=== PATIENT | male | born 2000 | race African-American/Black ===

== ENCOUNTER 2022-05-04 08:32 | Inpatient (IN) ==
[2022-05-04] MEDS ORDERED: NS 0.9% 1000 ml BAG 2,000 ML IV ONE (09:02)
[2022-05-04] MEDS ORDERED: Vancomycin 1,500 MG in NS 0.9% 250 ml 250 ML IVPB ONE (09:15)
[2022-05-04 11:07] LABS: Hematocrit 49 % (42-52); Mean Corpuscular HGB Conc 32 g/dL (31-36); Mean Corpuscular Hemoglobin 27 pg (27-31); Mean Corpuscular Volume 82 fL (80-94); Platelet Count 388 10^3/uL (150-450); Red Blood Count 6.04 10^6 /uL (4.18-5.48); Red Cell Distribution Width 13 % (10-15); White Blood Count 25.4 10^3/uL (3.5-10.8)
[2022-05-04] MEDS ORDERED: Cefepime 2 GM in Dextrose 2 GM/50 ML BAG IV ONE (11:21)
[2022-05-04 11:42] LABS: ABS Lymphocytes 2.9 10^3/ul (1.0-4.8); ABS Monocytes 3.5 10^3/ul (0-0.8); ABS Neutrophils 18.9 10^3/ul (1.5-7.7); Eosinophil % 0.1 %; Lymphocyte % 11.5 %; Nucleated Red Blood Cells % 0.1
[2022-05-04 11:49] LABS: Albumin 4.3 g/dL (3.2-5.2); CO2 Carbon Dioxide 24 mmol/L (22-32); Calcium 8.8 mg/dL (8.6-10.3); Chloride 98 mmol/L (101-111); Sodium 135 mmol/L (135-145)
[2022-05-04 11:56] LABS: ALT 230 U/L (7-52); Albumin/Globulin Ratio 1.3 (1-3); Alkaline Phosphatase 109 U/L (35-149); Blood Urea Nitrogen 26 mg/dL (6-24); Globulin 3.3 g/dL (2-4); Glucose 104 mg/dL (70-100); Total Protein 7.6 g/dL (6.4-8.9); eGFR CKD-EPI 41.4 (>60)
[2022-05-04 11:58] LABS: Anion Gap 13 mmol/L (2-11)
[2022-05-04] MEDS ORDERED: Iodixanol (CONTRAST) 320 MG/ML 100 ML SDV IV ONE (12:13)
[2022-05-04] MEDS ORDERED: Lactated Ringers 1000 ml BAG 1,000 ML IV ONE (12:16)
[2022-05-04 13:38] LABS: Creatine Kinase 104279 U/L (10-223)
[2022-05-04] MEDS: Acetaminophen IV 1 GM/100ML 1,000 MG/100 ML BAG IV PRN (20:17)
[2022-05-04] MEDS ORDERED: NS 0.9% 100 ml BAG 100 ML IV ONE (20:29)
[2022-05-04] MEDS ORDERED: Vancomycin per Pharmacy 1 EA NOTE FOLLOW UP SCH (21:00)
[2022-05-04 23:23] LABS: Hematocrit 43 % (42-52); Hemoglobin 13.6 g/dL (14.0-18.0); Mean Corpuscular HGB Conc 32 g/dL (31-36); Mean Corpuscular Hemoglobin 26 pg (27-31); Mean Corpuscular Volume 82 fL (80-94); Red Blood Count 5.29 10^6 /uL (4.18-5.48); Red Cell Distribution Width 14 % (10-15); White Blood Count 21.5 10^3/uL (3.5-10.8)
[2022-05-04 23:37] LABS: Albumin 3.6 g/dL (3.2-5.2); CO2 Carbon Dioxide 16 mmol/L (22-32); Chloride 100 mmol/L (101-111); Sodium 128 mmol/L (135-145)
[2022-05-04 23:43] LABS: ALT 232 U/L (7-52); Albumin/Globulin Ratio 1.2 (1-3); Alkaline Phosphatase 101 U/L (35-149); Blood Urea Nitrogen 36 mg/dL (6-24); Globulin 2.9 g/dL (2-4); Glucose 92 mg/dL (70-100); Total Protein 6.5 g/dL (6.4-8.9); eGFR CKD-EPI 23.2 (>60)
[2022-05-04 23:52] LABS: Anion Gap 12 mmol/L (2-11)
[2022-05-05] MEDS ORDERED: Vancomycin 750 MG in NS 0.9% 250 ML IVPB ONE
[2022-05-05 00:17] LABS: ABS Lymphocytes 2.2 10^3/ul (1.0-4.8); ABS Monocytes 2.2 10^3/ul (0-0.8); ABS Neutrophils 17.3 10^3/ul (1.5-7.7); Eosinophil % 0.1 %; Lymphocyte % 10.2 %; Nucleated Red Blood Cells % 0.2
[2022-05-05 00:18] LABS: Platelet Count Platelets clumped. 10^3/uL (150-450)
[2022-05-05 00:57] LABS: Creatine Kinase 81347 U/L (10-223)
[2022-05-05 01:59] LABS: Urine Appearance Turbid; Urine Bilirubin Negative (Negative); Urine Blood 3+ (Negative); Urine Color Amber; Urine Glucose 1+(50 mg/dL) (Negative); Urine Ketones Negative (Negative); Urine Nitrite Negative (Negative); Urine Protein 2+(100 mg/dL) (Negative); Urine Specific Gravity 1.023 (1.002-1.030); Urine Urobilinogen Negative (Negative)
[2022-05-05] MEDS: Cefepime 2 GM in Dextrose 2 GM/50 ML BAG IV SCH ×2 (02:05→11:03)
[2022-05-05 02:07] LABS: Urine Bacteria Absent (Absent); Urine Red Blood Cell 2+(6-10/hpf) (Absent); Urine Squamous Epithelial Cell Present (Absent); Urine White Blood Cell 1+(6-10/hpf) (Absent)
[2022-05-05 02:17] LABS: Urine Benzodiazepine Screen Presumptive Positive (None Detect); Urine Cannabinoids Screen Presumptive Positive (None Detect); Urine Opiates Screen Presumptive Positive (None Detect)
[2022-05-05 02:18] LABS: Potassium Redraw 4.2 mmol/L (3.5-5.0)
[2022-05-05 02:42] LABS: Albumin 3.1 g/dL (3.2-5.2); Albumin/Globulin Ratio 1.3 (1-3); Calcium 7.8 mg/dL (8.6-10.3); Globulin 2.4 g/dL (2-4); Phosphorus 5.7 mg/dL (2.5-5.0); Potassium 4.2 mmol/L (3.5-5.0); Total Bilirubin 0.5 mg/dL (0.2-1.0); Total Protein 5.5 g/dL (6.4-8.9)
[2022-05-05] MEDS: Lactated Ringers 1000 ml BAG 1,000 ML IV SCH ×2 (02:57→05:31)
[2022-05-05] MEDS ORDERED: Lactated Ringers 500 ml BAG 500 ML IV ONE (04:04)
[2022-05-05 05:20] LABS: Hematocrit 36 % (42-52); Hemoglobin 11.8 g/dL (14.0-18.0); Mean Corpuscular HGB Conc 33 g/dL (31-36); Mean Corpuscular Hemoglobin 26 pg (27-31); Mean Corpuscular Volume 80 fL (80-94); Mean Platelet Volume 6.9 fL (7.4-10.4); Platelet Count 231 10^3/uL (150-450); Red Blood Count 4.47 10^6 /uL (4.18-5.48); Red Cell Distribution Width 13 % (10-15); White Blood Count 19.4 10^3/uL (3.5-10.8)
[2022-05-05 05:33] LABS: Fibrinogen 471.1 mg/dL (110.8-404.3); INR 1.09 (0.89-1.11)
[2022-05-05 05:49] LABS: ABS Lymphocytes 1.8 10^3/ul (1.0-4.8); ABS Monocytes 2.3 10^3/ul (0-0.8); ABS Neutrophils 15.2 10^3/ul (1.5-7.7); Eosinophil % 0.1 %; Lymphocyte % 9.3 %
[2022-05-05 05:53] LABS: Albumin/Globulin Ratio 1.3 (1-3); C Reactive Protein 139.82 mg/L (<8.01); Calcium 7.7 mg/dL (8.6-10.3); Globulin 2.3 g/dL (2-4); Potassium 4.1 mmol/L (3.5-5.0); Total Bilirubin 0.5 mg/dL (0.2-1.0); Total Protein 5.3 g/dL (6.4-8.9); eGFR CKD-EPI 18.1 (>60)
[2022-05-05] MEDS ORDERED: Rocuronium 50 mg VIAL 10 mg/ml 5 ml VIAL (50 mg) ONE (06:10)
[2022-05-05] MEDS ORDERED: Midazolam 5 mg/5 ml VIAL 1 mg/ml 5 ml VIAL (5 mg) ONE (06:11)
[2022-05-05] MEDS ORDERED: fentaNYL 100 mcg/2 ml 50 MCG/ML VIAL ONE ×3 (06:11→08:42)
[2022-05-05] MEDS ORDERED: Ketamine HCL 50 mg/ml 10 ml VIAL (500 MG) ONE (06:11)
[2022-05-05] MEDS ORDERED: Lidocaine 2% PF 5 ML VIAL ONE (06:12)
[2022-05-05] MEDS ORDERED: fentaNYL 250 mcg/5 ml 50 MCG/ML 5 ml VIAL (250 MCG) ONE (07:21)
[2022-05-05] MEDS ORDERED: Ondansetron 4 mg VIAL 2 MG/ML 2 ml VIAL IV PRN (07:24)
[2022-05-05] MEDS ORDERED: HYDROmorphone 1 MG/1 ML SYRINGE IV PRN (07:24)
[2022-05-05] MEDS ORDERED: Naloxone 0.4 mg VIAL 0.4 mg/ml 1 ml VIAL IV PRN (07:24)
[2022-05-05] MEDS ORDERED: Morphine 10 MG/ML VIAL (1 ml) ONE (07:48)
[2022-05-05] MEDS: fentaNYL 100 mcg/2 ml 50 MCG/ML VIAL IV PRN ×2 (08:43→09:19)
[2022-05-05] MEDS ORDERED: Morphine 4 MG/ML VIAL (1 ml) ONE (08:59)
[2022-05-05] MEDS ORDERED: Vancomycin 1000 MG in NS 0.9% 250 ML IVPB SCH (09:00)
[2022-05-05] MEDS ORDERED: fentaNYL 100 mcg/2 ml 50 MCG/ML VIAL IV SLOW PU PRN (10:14)
[2022-05-05] MEDS ORDERED: NS 0.9% 500 ml BAG 500 ML IV ONE ×3 (10:25→11:30)
[2022-05-05] MEDS ORDERED: Lactated Ringers 1000 ml BAG 1,000 ML IV SCH (10:27)
[2022-05-05] MEDS ORDERED: Vancomycin Random Level NOTE FOLLOW UP ONE (10:30)
[2022-05-05] MEDS: NS 0.9% 1000 ml BAG 1,000 ML IV SCH ×3 (10:46→20:37)
[2022-05-05] MEDS: Acetaminophen IV 1 GM/100ML 1,000 MG/100 ML BAG IV PRN ×2 (12:12→19:35)
[2022-05-05] MEDS: Heparin 5000 UNITS/ML 1 mL VIAL SUBCUT SCH ×2 (13:54→23:32)
[2022-05-05] MEDS ORDERED: NS 0.9% 500 ml BAG 1,000 ML IV ONE (14:13)
[2022-05-05] MEDS: fentaNYL 100 mcg/2 ml 50 MCG/ML VIAL IV SLOW PU PRN ×4 (14:16→17:44)
[2022-05-05] MEDS ORDERED: Magnesium Hydroxide LIQ 30 ML UDC PO PRN (14:47)
[2022-05-05 15:07] LABS: Anion Gap 12 mmol/L (2-11); Blood Urea Nitrogen 44 mg/dL (6-24); CO2 Carbon Dioxide 17 mmol/L (22-32); Calcium 6.9 mg/dL (8.6-10.3); Chloride 102 mmol/L (101-111); Glucose 123 mg/dL (70-100); Potassium 4.4 mmol/L (3.5-5.0); Sodium 131 mmol/L (135-145); eGFR CKD-EPI 15.5 (>60)
[2022-05-05] MEDS: Senna TAB 8.6 mg TAB PO PRN (15:36)
[2022-05-05] MEDS ORDERED: Furosemide 20 mg/2 ml IV VIAL IV ONE (16:45)
[2022-05-05 17:45] LABS: Creatine Kinase > 18000 U/L (10-223)
[2022-05-05 20:00] LABS: Magnesium 1.7 mg/dL (1.9-2.7); Phosphorus 5.6 mg/dL (2.5-5.0)
[2022-05-05 20:58] LABS: Venous Bicarbonate HCO3 18.5 mmol/L (24-28)
[2022-05-05] MEDS ORDERED: Dexmedetomidine 1,000 MCG in NS 0.9% 250 ml 240 ML IV SCH (21:00)
[2022-05-06] MEDS: Cefepime 1 GM in Dextrose 1 GM/50 ML BAG IV SCH ×2 (00:34→13:13)
[2022-05-06] MEDS: fentaNYL 100 mcg/2 ml 50 MCG/ML VIAL IV SLOW PU PRN ×8 (00:41→22:49)
[2022-05-06] MEDS: NS 0.9% 1000 ml BAG 1,000 ML IV SCH ×2 (02:00→06:55)
[2022-05-06] MEDS: Acetaminophen IV 1 GM/100ML 1,000 MG/100 ML BAG IV PRN ×3 (02:36→15:48)
[2022-05-06 03:29] LABS: ABS Eosinophils 0.1 10^3/ul (0-0.6); ABS Lymphocytes 1.4 10^3/ul (1.0-4.8); ABS Monocytes 1.5 10^3/ul (0-0.8); ABS Neutrophils 9.8 10^3/ul (1.5-7.7); Eosinophil % 0.6 %; Hematocrit 30 % (42-52); Hemoglobin 9.6 g/dL (14.0-18.0); Lymphocyte % 11.1 %; Mean Corpuscular HGB Conc 32 g/dL (31-36); Mean Corpuscular Hemoglobin 25 pg (27-31); Mean Corpuscular Volume 80 fL (80-94); Mean Platelet Volume 6.8 fL (7.4-10.4); Platelet Count 183 10^3/uL (150-450); Red Blood Count 3.77 10^6 /uL (4.18-5.48); Red Cell Distribution Width 13 % (10-15); White Blood Count 12.9 10^3/uL (3.5-10.8)
[2022-05-06 03:56] LABS: Phosphorus 5.1 mg/dL (2.5-5.0); Vancomycin Random 17.1 mcg/mL
[2022-05-06] MEDS: Heparin 5000 UNITS/ML 1 mL VIAL SUBCUT SCH ×3 (05:58→21:16)
[2022-05-06] MEDS ORDERED: Vancomycin Random Level NOTE FOLLOW UP ONE (06:00)
[2022-05-06] MEDS ORDERED: Piperacillin/Tazobac ADVAN 3.375 GM in NS 0.9% 100 ml BAG 100 ML IV ONE (08:18)
[2022-05-06 08:24] LABS: Myoglobin 11677.6 ng/mL (17.4-105.7)
[2022-05-06] MEDS ORDERED: NS 0.9% 1000 ml BAG 1,000 ML IV SCH (08:27)
[2022-05-06] MEDS ORDERED: Zosyn per Pharmacy NOTE FOLLOW UP SCH (09:00)
[2022-05-06 11:47] LABS: HIV 4th Generation Nonreactive (Nonreactive)
[2022-05-06 11:52] LABS: Hepatitis C Antibody Negative (Negative)
[2022-05-06] MEDS ORDERED: HYDROmorphone 1 MG/1 ML SYRINGE IV ONE (12:17)
[2022-05-06] MEDS ORDERED: Midazolam 10 mg/10 ml VIAL 1 mg/ml 10 ml VIAL (10 mg) IV SLOW PU ONE (12:25)
[2022-05-06] MEDS ORDERED: fentaNYL 250 mcg/5 ml 50 MCG/ML 5 ml VIAL (250 MCG) ONE (12:29)
[2022-05-06] MEDS ORDERED: Midazolam 10 mg/10 ml VIAL 1 mg/ml 10 ml VIAL (10 mg) ONE (12:29)
[2022-05-06] MEDS ORDERED: Midazolam 2 mg/2 ml VIAL 1 mg/ml 2 ml VIAL (2 mg) IV SLOW PU ONE (13:19)
[2022-05-06] MEDS ORDERED: Heparin 1,000 UNIT/ML 10 ml (10,000 UNITS) CATHLAB/DIALYSIS DIALYSIS ONE (13:35)
[2022-05-06] MEDS: ZOSYN 3.375 GM Q12H per EXTENDED INFUSION IV SCH (13:59)
[2022-05-06] MEDS ORDERED: fentaNYL 100 mcg/2 ml 50 MCG/ML VIAL IV SLOW PU ONE ×2 (14:39→14:40)
[2022-05-06 16:50] LABS: Hepatitis B Surface Antigen Nonreactive (Nonreactive)
[2022-05-06 17:08] LABS: Hepatitis B Surface Ab Immune (Immune)
[2022-05-06] MEDS: Vancomycin 750 MG in NS 0.9% 250 ML IVPB ONE ×2 (17:31→18:12)
[2022-05-06] MEDS ORDERED: fentaNYL 100 mcg/2 ml 50 MCG/ML VIAL IV SLOW PU SCH (21:00)
[2022-05-07] MEDS: fentaNYL 100 mcg/2 ml 50 MCG/ML VIAL IV SLOW PU PRN ×8 (00:14→20:23)
[2022-05-07] MEDS: Cefepime 1 GM in Dextrose 1 GM/50 ML BAG IV SCH (00:21)
[2022-05-07] MEDS: ZOSYN 3.375 GM Q12H per EXTENDED INFUSION IV SCH ×2 (00:53→13:15)
[2022-05-07] MEDS: Heparin 5000 UNITS/ML 1 mL VIAL SUBCUT SCH ×3 (04:50→22:20)
[2022-05-07] MEDS: Acetaminophen IV 1 GM/100ML 1,000 MG/100 ML BAG IV PRN (04:50)
[2022-05-07 05:16] LABS: Hematocrit 30 % (42-52); Hemoglobin 9.5 g/dL (14.0-18.0); Mean Corpuscular HGB Conc 32 g/dL (31-36); Mean Corpuscular Hemoglobin 26 pg (27-31); Mean Corpuscular Volume 80 fL (80-94); Mean Platelet Volume 7.2 fL (7.4-10.4); Platelet Count 176 10^3/uL (150-450); Red Blood Count 3.73 10^6 /uL (4.18-5.48); Red Cell Distribution Width 13 % (10-15); White Blood Count 14.3 10^3/uL (3.5-10.8)
[2022-05-07 05:33] LABS: ABS Eosinophils 0.2 10^3/ul (0-0.6); ABS Lymphocytes 1.9 10^3/ul (1.0-4.8); ABS Monocytes 1.6 10^3/ul (0-0.8); ABS Neutrophils 10.6 10^3/ul (1.5-7.7); Eosinophil % 1.2 %; Lymphocyte % 13.1 %
[2022-05-07 06:01] LABS: Albumin 2.3 g/dL (3.2-5.2); Albumin/Globulin Ratio 1.2 (1-3); Calcium 7.2 mg/dL (8.6-10.3); Globulin 1.9 g/dL (2-4); Phosphorus 4.8 mg/dL (2.5-5.0); Potassium 3.6 mmol/L (3.5-5.0); Total Bilirubin 0.3 mg/dL (0.2-1.0); Total Protein 4.2 g/dL (6.4-8.9); eGFR CKD-EPI 12.1 (>60)
[2022-05-07] MEDS ORDERED: Heparin *DIALYSIS* ONLY 1,000 UNITS/ML VIAL DIALYSIS ONE (06:18)
[2022-05-07] MEDS: Heparin 1,000 UNIT/ML 10 ml (10,000 UNITS) CATHLAB/DIALYSIS DIALYSIS ONE ×4 (06:59→10:26)
[2022-05-07] MEDS ORDERED: Vancomycin Trough Check NOTE FOLLOW UP ONE (08:30)
[2022-05-07 08:42] LABS: Vancomycin Random 22.8 mcg/mL
[2022-05-07] MEDS ORDERED: fentaNYL 100 mcg/2 ml 50 MCG/ML VIAL IV SLOW PU PRN (09:09)
[2022-05-07] MEDS ORDERED: Vancomycin 750 MG in NS 0.9% 250 ML IVPB ONE (18:00)
[2022-05-07] MEDS ORDERED: Heparin 1,000 UNIT/ML 10 ml (10,000 UNITS) CATHLAB/DIALYSIS DIALYSIS ONE (19:00)
[2022-05-08] MEDS: ZOSYN 3.375 GM Q12H per EXTENDED INFUSION IV SCH ×2 (00:19→12:54)
[2022-05-08] MEDS: fentaNYL 100 mcg/2 ml 50 MCG/ML VIAL IV SLOW PU PRN ×4 (02:15→21:00)
[2022-05-08 04:22] LABS: Hematocrit 31 % (42-52); Hemoglobin 9.8 g/dL (14.0-18.0); Mean Corpuscular HGB Conc 32 g/dL (31-36); Mean Corpuscular Hemoglobin 26 pg (27-31); Mean Corpuscular Volume 80 fL (80-94); Mean Platelet Volume 7.3 fL (7.4-10.4); Platelet Count 178 10^3/uL (150-450); Red Blood Count 3.82 10^6 /uL (4.18-5.48); Red Cell Distribution Width 14 % (10-15); White Blood Count 13.3 10^3/uL (3.5-10.8)
[2022-05-08 04:25] LABS: ABS Basophils 0.1 10^3/ul (0-0.2); ABS Eosinophils 0.5 10^3/ul (0-0.6); ABS Lymphocytes 2.8 10^3/ul (1.0-4.8); ABS Monocytes 1.7 10^3/ul (0-0.8); ABS Neutrophils 8.2 10^3/ul (1.5-7.7); Eosinophil % 3.9 %; Lymphocyte % 21.3 %; Nucleated Red Blood Cells % 0.1
[2022-05-08 04:45] LABS: Albumin 2.3 g/dL (3.2-5.2); Albumin/Globulin Ratio 1.2 (1-3); Globulin 1.9 g/dL (2-4); Phosphorus 5.5 mg/dL (2.5-5.0); Potassium 3.4 mmol/L (3.5-5.0); Total Bilirubin 0.3 mg/dL (0.2-1.0); Total Protein 4.2 g/dL (6.4-8.9); Vancomycin Random 26.7 mcg/mL; eGFR CKD-EPI 12.4 (>60)
[2022-05-08 05:00] LABS: Calcium 7.6 mg/dL (8.6-10.3)
[2022-05-08] MEDS ORDERED: Vancomycin Random Level NOTE FOLLOW UP SCH (06:00)
[2022-05-08] MEDS: Heparin 5000 UNITS/ML 1 mL VIAL SUBCUT SCH ×2 (06:18→14:16)
[2022-05-08] MEDS: Heparin 1,000 UNIT/ML 10 ml (10,000 UNITS) CATHLAB/DIALYSIS DIALYSIS ONE ×4 (09:15→12:21)
[2022-05-09] MEDS: ZOSYN 3.375 GM Q12H per EXTENDED INFUSION IV SCH ×2 (01:14→14:35)
[2022-05-09] MEDS: fentaNYL 100 mcg/2 ml 50 MCG/ML VIAL IV SLOW PU PRN ×3 (03:22→19:46)
[2022-05-09] MEDS ORDERED: Bupivacaine 0.25% SDV 30 ML ONE (07:33)
[2022-05-09] MEDS ORDERED: Metoclopramide 5 MG/ML VIAL (10 mg) IV PRN (07:37)
[2022-05-09] MEDS ORDERED: HYDROcodone/ACETAMIN 5/325 mg TAB PO PRN (07:37)
[2022-05-09] MEDS ORDERED: Buffered Lidocaine 1% SYRIN 1 ml INTRADERM ONE (07:37)
[2022-05-09] MEDS ORDERED: Naloxone 0.4 mg VIAL 0.4 mg/ml 1 ml VIAL IV PRN (07:37)
[2022-05-09] MEDS ORDERED: Ondansetron 4 mg VIAL 2 MG/ML 2 ml VIAL IV PRN (07:37)
[2022-05-09] MEDS ORDERED: Midazolam 2 mg/2 ml VIAL 1 mg/ml 2 ml VIAL (2 mg) ONE (07:40)
[2022-05-09] MEDS ORDERED: fentaNYL 250 mcg/5 ml 50 MCG/ML 5 ml VIAL (250 MCG) ONE (07:40)
[2022-05-09] MEDS ORDERED: Propofol 10 MG/ML 20 ML BTL ONE (07:41)
[2022-05-09 07:58] LABS: Hematocrit 32 % (42-52); Hemoglobin 10.6 g/dL (14.0-18.0); Mean Corpuscular HGB Conc 33 g/dL (31-36); Mean Corpuscular Hemoglobin 26 pg (27-31); Mean Corpuscular Volume 79 fL (80-94); Mean Platelet Volume 7.3 fL (7.4-10.4); Platelet Count 162 10^3/uL (150-450); Red Blood Count 4.02 10^6 /uL (4.18-5.48); Red Cell Distribution Width 13 % (10-15); White Blood Count 17.1 10^3/uL (3.5-10.8)
[2022-05-09] MEDS ORDERED: NS 0.45% 1000 ml BAG 1,000 ML IV SCH (08:00)
[2022-05-09] MEDS ORDERED: ceFAZolin 2 GM in NS PREMIX 2 GM/100 ML BAG IVPB ONE (08:03)
[2022-05-09 08:15] LABS: Phosphorus 6.4 mg/dL (2.5-5.0); Potassium 3.5 mmol/L (3.5-5.0); Vancomycin Random 19.1 mcg/mL; eGFR CKD-EPI 11.5 (>60)
[2022-05-09] MEDS ORDERED: fentaNYL 100 mcg/2 ml 50 MCG/ML VIAL ONE (09:43)
[2022-05-09] MEDS: fentaNYL 100 mcg/2 ml 50 MCG/ML VIAL IV PRN ×4 (09:45→10:20)
[2022-05-09] MEDS ORDERED: fentaNYL 100 mcg/2 ml 50 MCG/ML VIAL IV SLOW PU PRN (10:27)
[2022-05-09] MEDS ORDERED: HYDROcodone/ACETAMIN 5/325 mg TAB ONE (10:44)
[2022-05-10] MEDS: fentaNYL 100 mcg/2 ml 50 MCG/ML VIAL IV SLOW PU PRN ×5 (00:11→21:12)
[2022-05-10] MEDS: ZOSYN 3.375 GM Q12H per EXTENDED INFUSION IV SCH ×2 (01:12→16:14)
[2022-05-10 04:43] LABS: Hematocrit 29 % (42-52); Hemoglobin 9.4 g/dL (14.0-18.0); Mean Corpuscular HGB Conc 32 g/dL (31-36); Mean Corpuscular Hemoglobin 26 pg (27-31); Mean Corpuscular Volume 79 fL (80-94); Mean Platelet Volume 7.7 fL (7.4-10.4); Platelet Count 153 10^3/uL (150-450); Red Blood Count 3.67 10^6 /uL (4.18-5.48); Red Cell Distribution Width 14 % (10-15); White Blood Count 14.9 10^3/uL (3.5-10.8)
[2022-05-10 04:58] LABS: ABS Basophils 0.1 10^3/ul (0-0.2); ABS Eosinophils 0.7 10^3/ul (0-0.6); ABS Lymphocytes 2.8 10^3/ul (1.0-4.8); ABS Neutrophils 9.3 10^3/ul (1.5-7.7); Lymphocyte % 18.9 %; Nucleated Red Blood Cells % 0.2
[2022-05-10 05:08] LABS: Calcium 7.7 mg/dL (8.6-10.3); Magnesium 2.1 mg/dL (1.9-2.7); Potassium 3.4 mmol/L (3.5-5.0); Vancomycin Random 16.6 mcg/mL; eGFR CKD-EPI 8.4 (>60)
[2022-05-10 07:23] LABS: Phosphorus 7.3 mg/dL (2.5-5.0)
[2022-05-10] MEDS ORDERED: Zosyn per Pharmacy NOTE FOLLOW UP PRN (11:31)
[2022-05-10] MEDS ORDERED: fentaNYL 100 mcg/2 ml 50 MCG/ML VIAL IV SLOW PU ONE (11:56)
[2022-05-10] MEDS: Heparin 1,000 UNIT/ML 10 ml (10,000 UNITS) CATHLAB/DIALYSIS DIALYSIS PRN ×4 (12:30→15:58)
[2022-05-10] MEDS: Senna TAB 8.6 mg TAB PO PRN (21:09)
[2022-05-11] MEDS: ZOSYN 3.375 GM Q12H per EXTENDED INFUSION IV SCH ×2 (00:59→13:14)
[2022-05-11] MEDS: fentaNYL 100 mcg/2 ml 50 MCG/ML VIAL IV SLOW PU PRN ×5 (01:00→20:44)
[2022-05-11 06:43] LABS: Hematocrit 31 % (42-52); Hemoglobin 10.4 g/dL (14.0-18.0); Mean Corpuscular HGB Conc 34 g/dL (31-36); Mean Corpuscular Hemoglobin 27 pg (27-31); Mean Corpuscular Volume 79 fL (80-94); Mean Platelet Volume 7.8 fL (7.4-10.4); Platelet Count 192 10^3/uL (150-450); Red Blood Count 3.88 10^6 /uL (4.18-5.48); Red Cell Distribution Width 14 % (10-15)
[2022-05-11 07:51] LABS: Albumin 2.9 g/dL (3.2-5.2); Albumin/Globulin Ratio 1.3 (1-3); Calcium 8.1 mg/dL (8.6-10.3); Globulin 2.2 g/dL (2-4); Magnesium 2.2 mg/dL (1.9-2.7); Potassium 3.6 mmol/L (3.5-5.0); Total Bilirubin 0.4 mg/dL (0.2-1.0); Total Protein 5.1 g/dL (6.4-8.9); eGFR CKD-EPI 9.7 (>60)
[2022-05-11] MEDS ORDERED: Heparin 1,000 UNIT/ML 10 ml (10,000 UNITS) CATHLAB/DIALYSIS DIALYSIS ONE (16:00)
[2022-05-11 18:26] LABS: C Reactive Protein 22.22 mg/L (<8.01)
[2022-05-12] MEDS: ZOSYN 3.375 GM Q12H per EXTENDED INFUSION IV SCH ×2 (00:01→14:00)
[2022-05-12] MEDS: fentaNYL 100 mcg/2 ml 50 MCG/ML VIAL IV SLOW PU PRN ×6 (02:04→23:59)
[2022-05-12 06:07] LABS: Hematocrit 28 % (42-52); Hemoglobin 9.3 g/dL (14.0-18.0); Mean Corpuscular HGB Conc 33 g/dL (31-36); Mean Corpuscular Hemoglobin 26 pg (27-31); Mean Corpuscular Volume 79 fL (80-94); Mean Platelet Volume 7.8 fL (7.4-10.4); Platelet Count 216 10^3/uL (150-450); Red Blood Count 3.58 10^6 /uL (4.18-5.48); Red Cell Distribution Width 14 % (10-15)
[2022-05-12 06:30] LABS: Calcium 8.2 mg/dL (8.6-10.3); Magnesium 2.1 mg/dL (1.9-2.7); Potassium 3.5 mmol/L (3.5-5.0)
[2022-05-12 06:36] LABS: eGFR CKD-EPI 11.8 (>60)
[2022-05-12 07:42] LABS: ABS Basophils 0.1 10^3/ul (0-0.2); ABS Eosinophils 0.8 10^3/ul (0-0.6); ABS Lymphocytes 2.1 10^3/ul (1.0-4.8); ABS Monocytes 2.1 10^3/ul (0-0.8); ABS Neutrophils 8.8 10^3/ul (1.5-7.7); Lymphocyte % 15.3 %; RBC Morphology Normal (Normal)
[2022-05-12] MEDS: Heparin 1,000 UNIT/ML 10 ml (10,000 UNITS) CATHLAB/DIALYSIS DIALYSIS ONE ×3 (11:05→13:10)
[2022-05-13] MEDS: ZOSYN 3.375 GM Q12H per EXTENDED INFUSION IV SCH ×2 (01:17→15:38)
[2022-05-13] MEDS: fentaNYL 100 mcg/2 ml 50 MCG/ML VIAL IV SLOW PU PRN ×3 (05:21→19:42)
[2022-05-13 05:22] LABS: Hematocrit 27 % (42-52); Hemoglobin 8.9 g/dL (14.0-18.0); Mean Corpuscular HGB Conc 33 g/dL (31-36); Mean Corpuscular Hemoglobin 26 pg (27-31); Mean Corpuscular Volume 79 fL (80-94); Mean Platelet Volume 7.6 fL (7.4-10.4); Platelet Count 205 10^3/uL (150-450); Red Cell Distribution Width 14 % (10-15); White Blood Count 10.2 10^3/uL (3.5-10.8)
[2022-05-13 05:51] LABS: Calcium 8.3 mg/dL (8.6-10.3); Potassium 3.5 mmol/L (3.5-5.0); eGFR CKD-EPI 14.2 (>60)
[2022-05-13] MEDS ORDERED: Propofol 10 MG/ML 20 ML BTL ONE ×2 (06:24→07:04)
[2022-05-13] MEDS ORDERED: Lidocaine 2% PF 5 ML VIAL ONE (06:29)
[2022-05-13] MEDS ORDERED: Midazolam 2 mg/2 ml VIAL 1 mg/ml 2 ml VIAL (2 mg) ONE (06:29)
[2022-05-13] MEDS ORDERED: fentaNYL 100 mcg/2 ml 50 MCG/ML VIAL ONE ×3 (06:29→08:39)
[2022-05-13] MEDS ORDERED: Bupivacaine 0.25% SDV 30 ML ONE (06:38)
[2022-05-13] MEDS ORDERED: Potassium Chlor 20 meq TAB.ER PO ONE (06:49)
[2022-05-13] MEDS ORDERED: ceFAZolin VIAL VIAL ONE (07:15)
[2022-05-13] MEDS ORDERED: Ondansetron 4 mg VIAL 2 MG/ML 2 ml VIAL ONE (07:25)
[2022-05-13] MEDS ORDERED: Dexamethasone IV 4 MG/ML VIAL 1 ml VIAL ONE (07:25)
[2022-05-13] MEDS ORDERED: Naloxone 0.4 mg VIAL 0.4 mg/ml 1 ml VIAL IV PRN (07:58)
[2022-05-13] MEDS ORDERED: Ondansetron 4 mg VIAL 2 MG/ML 2 ml VIAL IV PRN (07:58)
[2022-05-13] MEDS: fentaNYL 100 mcg/2 ml 50 MCG/ML VIAL IV PRN ×2 (08:40→08:54)
[2022-05-13] MEDS: Heparin 1,000 UNIT/ML 10 ml (10,000 UNITS) CATHLAB/DIALYSIS DIALYSIS PRN ×5 (11:10→15:00)
[2022-05-14] MEDS: fentaNYL 100 mcg/2 ml 50 MCG/ML VIAL IV SLOW PU PRN ×6 (00:46→21:09)
[2022-05-14] MEDS: ZOSYN 3.375 GM Q12H per EXTENDED INFUSION IV SCH ×2 (00:47→13:08)
[2022-05-14 05:00] LABS: ABS Basophils 0.1 10^3/ul (0-0.2); ABS Eosinophils 0.3 10^3/ul (0-0.6); ABS Lymphocytes 2.5 10^3/ul (1.0-4.8); ABS Monocytes 1.5 10^3/ul (0-0.8); Eosinophil % 3.7 %; Hematocrit 24 % (42-52); Mean Corpuscular HGB Conc 33 g/dL (31-36); Mean Corpuscular Hemoglobin 26 pg (27-31); Mean Corpuscular Volume 80 fL (80-94); Mean Platelet Volume 7.2 fL (7.4-10.4); Nucleated Red Blood Cells % 0.2; Platelet Count 209 10^3/uL (150-450); Red Blood Count 3.06 10^6 /uL (4.18-5.48); Red Cell Distribution Width 14 % (10-15); White Blood Count 8.4 10^3/uL (3.5-10.8)
[2022-05-14 05:55] LABS: Calcium 8.1 mg/dL (8.6-10.3); Magnesium 1.9 mg/dL (1.9-2.7); Potassium 3.4 mmol/L (3.5-5.0); eGFR CKD-EPI 19.2 (>60)
[2022-05-14] MEDS ORDERED: Potassium Chlor 20 meq TAB.ER PO ONE (06:56)
[2022-05-14] MEDS ORDERED: Magnesium Sulfate IV 1GM/100ML 1 GM/100 ML BAG IV ONE (06:56)
[2022-05-14] MEDS ORDERED: Naloxone 0.4 mg VIAL 0.4 mg/ml 1 ml VIAL IV PRN (11:45)
[2022-05-14] MEDS ORDERED: fentaNYL 100 mcg/2 ml 50 MCG/ML VIAL IV PRN (11:45)
[2022-05-14] MEDS: Heparin 1,000 UNIT/ML 10 ml (10,000 UNITS) CATHLAB/DIALYSIS DIALYSIS PRN ×4 (14:57→18:05)
[2022-05-14] MEDS: Senna TAB 8.6 mg TAB PO PRN (21:07)
[2022-05-15] MEDS: fentaNYL 100 mcg/2 ml 50 MCG/ML VIAL IV SLOW PU PRN ×5 (01:49→21:02)
[2022-05-15] MEDS: ZOSYN 3.375 GM Q12H per EXTENDED INFUSION IV SCH ×2 (01:51→13:17)
[2022-05-15 06:11] LABS: ABS Eosinophils 0.4 10^3/ul (0-0.6); ABS Monocytes 1.2 10^3/ul (0-0.8); ABS Neutrophils 4.4 10^3/ul (1.5-7.7); Hematocrit 28 % (42-52); Hemoglobin 9.1 g/dL (14.0-18.0); Lymphocyte % 24.5 %; Mean Corpuscular HGB Conc 33 g/dL (31-36); Mean Corpuscular Hemoglobin 27 pg (27-31); Mean Corpuscular Volume 81 fL (80-94); Mean Platelet Volume 7.2 fL (7.4-10.4); Nucleated Red Blood Cells % 0.1; Platelet Count 216 10^3/uL (150-450); Red Blood Count 3.44 10^6 /uL (4.18-5.48); Red Cell Distribution Width 15 % (10-15); White Blood Count 8.1 10^3/uL (3.5-10.8)
[2022-05-15 06:50] LABS: Calcium 8.6 mg/dL (8.6-10.3); Magnesium 1.9 mg/dL (1.9-2.7); Potassium 3.9 mmol/L (3.5-5.0); eGFR CKD-EPI 20.9 (>60)
[2022-05-15] MEDS ORDERED: fentaNYL 250 mcg/5 ml 50 MCG/ML 5 ml VIAL (250 MCG) ONE (07:18)
[2022-05-15] MEDS ORDERED: Ondansetron 4 mg VIAL 2 MG/ML 2 ml VIAL ONE (07:18)
[2022-05-15] MEDS ORDERED: Propofol 10 MG/ML 20 ML BTL ONE (07:18)
[2022-05-15] MEDS ORDERED: Dexamethasone IV 4 MG/ML VIAL 1 ml VIAL ONE (07:18)
[2022-05-15] MEDS ORDERED: Midazolam 2 mg/2 ml VIAL 1 mg/ml 2 ml VIAL (2 mg) ONE (07:18)
[2022-05-15] MEDS ORDERED: Lidocaine 2% PF 5 ML VIAL ONE (07:18)
[2022-05-15] MEDS ORDERED: fentaNYL 100 mcg/2 ml 50 MCG/ML VIAL IV PRN (07:46)
[2022-05-15] MEDS ORDERED: Naloxone 0.4 mg VIAL 0.4 mg/ml 1 ml VIAL IV PRN (07:46)
[2022-05-15] MEDS ORDERED: Ondansetron 4 mg VIAL 2 MG/ML 2 ml VIAL IV PRN (07:46)
[2022-05-15] MEDS ORDERED: Acetaminophen IV 1 GM/100ML 1,000 MG/100 ML BAG IV PRN (07:46)
[2022-05-15] MEDS ORDERED: HYDROmorphone 1 MG/1 ML SYRINGE IV PRN (07:46)
[2022-05-15] MEDS ORDERED: ceFAZolin VIAL VIAL ONE (08:31)
[2022-05-15] MEDS ORDERED: HYDROmorphone 1 MG/1 ML SYRINGE ONE (09:34)
[2022-05-16] MEDS: fentaNYL 100 mcg/2 ml 50 MCG/ML VIAL IV SLOW PU PRN ×6 (01:27→21:45)
[2022-05-16] MEDS: ZOSYN 3.375 GM Q12H per EXTENDED INFUSION IV SCH ×2 (01:33→12:48)
[2022-05-16 04:53] LABS: ABS Basophils 0.1 10^3/ul (0-0.2); ABS Eosinophils 0.3 10^3/ul (0-0.6); ABS Lymphocytes 3.2 10^3/ul (1.0-4.8); ABS Monocytes 1.2 10^3/ul (0-0.8); ABS Neutrophils 5.4 10^3/ul (1.5-7.7); Eosinophil % 3.2 %; Hematocrit 24 % (42-52); Hemoglobin 7.9 g/dL (14.0-18.0); Mean Corpuscular HGB Conc 32 g/dL (31-36); Mean Corpuscular Hemoglobin 26 pg (27-31); Mean Corpuscular Volume 80 fL (80-94); Nucleated Red Blood Cells % 0.2; Platelet Count 240 10^3/uL (150-450); Red Blood Count 3.06 10^6 /uL (4.18-5.48); Red Cell Distribution Width 15 % (10-15); White Blood Count 10.2 10^3/uL (3.5-10.8)
[2022-05-16 05:42] LABS: Calcium 8.4 mg/dL (8.6-10.3); Potassium 3.8 mmol/L (3.5-5.0); eGFR CKD-EPI 18.9 (>60)
[2022-05-17] MEDS: fentaNYL 100 mcg/2 ml 50 MCG/ML VIAL IV SLOW PU PRN ×5 (01:47→23:08)
[2022-05-17] MEDS: ZOSYN 3.375 GM Q12H per EXTENDED INFUSION IV SCH ×2 (01:48→13:07)
[2022-05-17 04:38] LABS: ABS Basophils 0.1 10^3/ul (0-0.2); ABS Eosinophils 0.4 10^3/ul (0-0.6); ABS Lymphocytes 2.5 10^3/ul (1.0-4.8); ABS Neutrophils 6.1 10^3/ul (1.5-7.7); Eosinophil % 3.9 %; Hematocrit 24 % (42-52); Hemoglobin 7.7 g/dL (14.0-18.0); Lymphocyte % 24.8 %; Mean Corpuscular HGB Conc 32 g/dL (31-36); Mean Corpuscular Hemoglobin 26 pg (27-31); Mean Corpuscular Volume 81 fL (80-94); Mean Platelet Volume 6.9 fL (7.4-10.4); Nucleated Red Blood Cells % 0.1; Platelet Count 244 10^3/uL (150-450); Red Blood Count 2.97 10^6 /uL (4.18-5.48); Red Cell Distribution Width 15 % (10-15); White Blood Count 10.1 10^3/uL (3.5-10.8)
[2022-05-17 05:45] LABS: Calcium 8.5 mg/dL (8.6-10.3); Potassium 4.1 mmol/L (3.5-5.0); eGFR CKD-EPI 19.9 (>60)
[2022-05-17] MEDS ORDERED: Lactated Ringers 1000 ml BAG 1,000 ML IV SCH (06:00)
[2022-05-17] MEDS ORDERED: Buffered Lidocaine 1% SYRIN 1 ml INTRADERM ONE (06:00)
[2022-05-17] MEDS ORDERED: Tetan/Diph/Pertus SYR(Tdap) 0.5 ML SYR(BOOSTRIX) use SYR contains LATEX IM ONE (12:00)
[2022-05-17] MEDS ORDERED: Midazolam 5 mg/5 ml VIAL 1 mg/ml 5 ml VIAL (5 mg) ONE (13:29)
[2022-05-17] MEDS ORDERED: Mineral Oil Sterile, TOPICAL 25 ML BTL ONE ×2 (15:05→16:56)
[2022-05-17] MEDS ORDERED: Ondansetron 4 mg VIAL 2 MG/ML 2 ml VIAL ONE (15:08)
[2022-05-17] MEDS ORDERED: Midazolam 2 mg/2 ml VIAL 1 mg/ml 2 ml VIAL (2 mg) ONE (15:08)
[2022-05-17] MEDS ORDERED: Propofol 10 MG/ML 20 ML BTL ONE (15:08)
[2022-05-17] MEDS ORDERED: Dexamethasone IV 4 MG/ML VIAL 1 ml VIAL ONE (15:08)
[2022-05-17] MEDS ORDERED: fentaNYL 250 mcg/5 ml 50 MCG/ML 5 ml VIAL (250 MCG) ONE (15:08)
[2022-05-17] MEDS ORDERED: Lidocaine 2% PF 5 ML VIAL ONE (15:08)
[2022-05-17] MEDS ORDERED: Lidocaine 1.5% EPI 1:200,000 30 ML SDV ONE (16:41)
[2022-05-17] MEDS ORDERED: Bupivacaine 0.25% w/EPI 10 ML SDV ONE (16:41)
[2022-05-17] MEDS ORDERED: Naloxone 0.4 mg VIAL 0.4 mg/ml 1 ml VIAL IV PRN (17:37)
[2022-05-17] MEDS ORDERED: oxyCODONE/Acetamin 5/325 mg TAB PO PRN (17:37)
[2022-05-17] MEDS ORDERED: Ondansetron 4 mg VIAL 2 MG/ML 2 ml VIAL IV PRN (17:37)
[2022-05-17] MEDS ORDERED: fentaNYL 100 mcg/2 ml 50 MCG/ML VIAL ONE ×2 (18:12→19:02)
[2022-05-17] MEDS: fentaNYL 100 mcg/2 ml 50 MCG/ML VIAL IV PRN ×2 (19:05→19:12)
[2022-05-18] MEDS: fentaNYL 100 mcg/2 ml 50 MCG/ML VIAL IV SLOW PU PRN ×5 (03:16→20:50)
[2022-05-18 05:23] LABS: Hematocrit 21 % (42-52); Mean Corpuscular HGB Conc 33 g/dL (31-36); Mean Corpuscular Hemoglobin 26 pg (27-31); Mean Corpuscular Volume 81 fL (80-94); Mean Platelet Volume 6.8 fL (7.4-10.4); Platelet Count 234 10^3/uL (150-450); Red Blood Count 2.64 10^6 /uL (4.18-5.48); Red Cell Distribution Width 15 % (10-15); White Blood Count 8.9 10^3/uL (3.5-10.8)
[2022-05-18 05:38] LABS: Calcium 8.2 mg/dL (8.6-10.3); Magnesium 1.5 mg/dL (1.9-2.7); Potassium 4.4 mmol/L (3.5-5.0)
[2022-05-18 05:43] LABS: eGFR CKD-EPI 26.6 (>60)
[2022-05-18] MEDS ORDERED: Tetan/Diph/Pertus SYR(Tdap) 0.5 ML SYR(BOOSTRIX) use SYR contains LATEX IM ONE (09:00)
[2022-05-18 15:44] LABS: Hematocrit 22 % (42-52); Hemoglobin 7.1 g/dL (14.0-18.0)
[2022-05-18] MEDS ORDERED: ceFAZolin VIAL 2 GM in NS 0.9% 100 ml BAG 100 ML IVPB SCH (16:29)
[2022-05-18] MEDS ORDERED: ceFAZolin 2 GM in NS PREMIX 2 GM/100 ML BAG IVPB SCH (16:29)
[2022-05-18] MEDS: Acetaminophen IV 1 GM/100ML 1,000 MG/100 ML BAG IV SCH (17:32)
[2022-05-18] MEDS: ceFAZolin 500 MG VIAL 500 MG in NS 0.9% 50 ML 50 ML IVPB SCH (18:20)
[2022-05-19] MEDS: fentaNYL 100 mcg/2 ml 50 MCG/ML VIAL IV SLOW PU PRN ×4 (00:52→13:10)
[2022-05-19] MEDS: Acetaminophen IV 1 GM/100ML 1,000 MG/100 ML BAG IV SCH ×3 (01:05→16:06)
[2022-05-19] MEDS: ceFAZolin 500 MG VIAL 500 MG in NS 0.9% 50 ML 50 ML IVPB SCH (04:56)
[2022-05-19 06:41] LABS: Hematocrit 24 % (42-52); Hemoglobin 7.8 g/dL (14.0-18.0); Mean Corpuscular HGB Conc 33 g/dL (31-36); Mean Corpuscular Hemoglobin 27 pg (27-31); Mean Corpuscular Volume 82 fL (80-94); Mean Platelet Volume 6.9 fL (7.4-10.4); Platelet Count 236 10^3/uL (150-450); Red Blood Count 2.92 10^6 /uL (4.18-5.48); Red Cell Distribution Width 16 % (10-15); White Blood Count 8.5 10^3/uL (3.5-10.8)
[2022-05-19 07:18] LABS: Calcium 8.8 mg/dL (8.6-10.3); Magnesium 1.4 mg/dL (1.9-2.7); Potassium 4.4 mmol/L (3.5-5.0)
[2022-05-19 07:24] LABS: eGFR CKD-EPI 37.5 (>60)
[2022-05-19] MEDS ORDERED: Magnesium Sulfate IV 3 GM in NS 0.9% 100 ml BAG 100 ML IVPB ONE (07:27)
[2022-05-19] MEDS: Heparin 5000 UNITS/ML 1 mL VIAL SUBCUT SCH ×3 (08:24→22:48)
[2022-05-19] MEDS ORDERED: Naloxone 0.4 mg VIAL 0.4 mg/ml 1 ml VIAL IV PUSH PRN (15:43)
[2022-05-19] MEDS: HYDROmorphone 1 MG/1 ML SYRINGE IV SLOW PU PRN (20:55)
[2022-05-20 05:05] LABS: Hematocrit 22 % (42-52); Mean Corpuscular HGB Conc 32 g/dL (31-36); Mean Corpuscular Hemoglobin 26 pg (27-31); Mean Corpuscular Volume 81 fL (80-94); Platelet Count 218 10^3/uL (150-450); Red Blood Count 2.68 10^6 /uL (4.18-5.48); Red Cell Distribution Width 15 % (10-15); White Blood Count 7.4 10^3/uL (3.5-10.8)
[2022-05-20] MEDS: Heparin 5000 UNITS/ML 1 mL VIAL SUBCUT SCH ×3 (05:39→21:32)
[2022-05-20 06:28] LABS: Calcium 8.9 mg/dL (8.6-10.3); Magnesium 1.7 mg/dL (1.9-2.7); Potassium 4.8 mmol/L (3.5-5.0)
[2022-05-20 06:34] LABS: eGFR CKD-EPI 48.4 (>60)
[2022-05-20] MEDS ORDERED: Magnesium Sulfate 2 gm BAG 2 GM/50 ML BAG IVPB ONE (07:10)
[2022-05-21] MEDS: Heparin 5000 UNITS/ML 1 mL VIAL SUBCUT SCH ×3 (05:34→21:36)
[2022-05-21 06:47] LABS: Calcium 8.9 mg/dL (8.6-10.3); Magnesium 1.5 mg/dL (1.9-2.7); Potassium 4.5 mmol/L (3.5-5.0); eGFR CKD-EPI 53.2 (>60)
[2022-05-21] MEDS ORDERED: Magnesium Sulfate IV 3 GM in NS 0.9% 100 ml BAG 100 ML IVPB ONE (08:00)
[2022-05-21 09:31] LABS: Hematocrit 22 % (42-52); Hemoglobin 7.1 g/dL (14.0-18.0)
[2022-05-22] MEDS: HYDROmorphone 1 MG/1 ML SYRINGE IV SLOW PU PRN ×2 (03:50→19:36)
[2022-05-22] MEDS: Heparin 5000 UNITS/ML 1 mL VIAL SUBCUT SCH ×3 (06:27→22:23)
[2022-05-22 14:57] LABS: Hematocrit 22 % (42-52); Mean Corpuscular HGB Conc 32 g/dL (31-36); Mean Corpuscular Hemoglobin 27 pg (27-31); Mean Corpuscular Volume 82 fL (80-94); Mean Platelet Volume 6.8 fL (7.4-10.4); Platelet Count 215 10^3/uL (150-450); Red Blood Count 2.63 10^6 /uL (4.18-5.48); Red Cell Distribution Width 15 % (10-15); White Blood Count 6.3 10^3/uL (3.5-10.8)
[2022-05-22 16:50] LABS: Calcium 8.6 mg/dL (8.6-10.3); Magnesium 1.7 mg/dL (1.9-2.7); Phosphorus 5.9 mg/dL (2.5-5.0); Potassium 4.7 mmol/L (3.5-5.0); eGFR CKD-EPI 54.7 (>60)
[2022-05-23] MEDS: Heparin 5000 UNITS/ML 1 mL VIAL SUBCUT SCH ×3 (05:53→22:28)
[2022-05-23 12:22] LABS: Hematocrit 22 % (42-52); Hemoglobin 7.3 g/dL (14.0-18.0)
[2022-05-23 12:53] LABS: Calcium 8.9 mg/dL (8.6-10.3); Magnesium 1.4 mg/dL (1.9-2.7); Potassium 4.9 mmol/L (3.5-5.0); eGFR CKD-EPI 58.3 (>60)
[2022-05-23] MEDS ORDERED: Magnesium Sulf 4 GM/100 ML IV 4,000 MG/100 ML BAG IVPB ONE (14:30)
[2022-05-23] MEDS: Acetaminophen IV 1 GM/100ML 1,000 MG/100 ML BAG IV SCH ×2 (15:43→22:21)
[2022-05-23] MEDS: Benzocaine (DENTAL) 10% TOP.GEL TOPICAL PRN ×2 (15:43→22:33)
[2022-05-23] MEDS: Lidocaine PATCH 5% PATCH TRANSDERM SCH (15:44)
[2022-05-23 22:17] LABS: Calcium 8.8 mg/dL (8.6-10.3); Potassium 4.6 mmol/L (3.5-5.0); eGFR CKD-EPI 50.2 (>60)
[2022-05-24 04:51] LABS: Hematocrit 21 % (42-52); Hemoglobin 6.9 g/dL (14.0-18.0)
[2022-05-24 05:02] LABS: Magnesium 2.3 mg/dL (1.9-2.7); Potassium 4.4 mmol/L (3.5-5.0)
[2022-05-24 05:07] LABS: eGFR CKD-EPI 50.2 (>60)
[2022-05-24] MEDS: Acetaminophen IV 1 GM/100ML 1,000 MG/100 ML BAG IV SCH ×3 (06:32→22:36)
[2022-05-24] MEDS ORDERED: Polyethylene Glycol 3350 17 GM PACKET PO PRN (08:52)
[2022-05-24] MEDS: Lidocaine PATCH 5% PATCH TRANSDERM SCH (11:00)
[2022-05-24] MEDS: Benzocaine (DENTAL) 10% TOP.GEL TOPICAL PRN ×2 (12:30→19:39)
[2022-05-24 17:53] LABS: Hematocrit 27 % (42-52)
[2022-05-24] MEDS: Heparin 5000 UNITS/ML 1 mL VIAL SUBCUT SCH (22:44)
[2022-05-25] MEDS: Heparin 5000 UNITS/ML 1 mL VIAL SUBCUT SCH ×2 (05:53→14:44)
[2022-05-25] MEDS: Acetaminophen IV 1 GM/100ML 1,000 MG/100 ML BAG IV SCH ×3 (05:53→20:01)
[2022-05-25 07:38] LABS: Hematocrit 26 % (42-52); Mean Corpuscular HGB Conc 34 g/dL (31-36); Mean Corpuscular Hemoglobin 28 pg (27-31); Mean Corpuscular Volume 82 fL (80-94); Mean Platelet Volume 7.1 fL (7.4-10.4); Platelet Count 237 10^3/uL (150-450); Red Blood Count 3.22 10^6 /uL (4.18-5.48); Red Cell Distribution Width 15 % (10-15); White Blood Count 6.6 10^3/uL (3.5-10.8)
[2022-05-25 08:27] LABS: Calcium 9.2 mg/dL (8.6-10.3); Magnesium 1.7 mg/dL (1.9-2.7); Potassium 4.8 mmol/L (3.5-5.0); eGFR CKD-EPI 61.8 (>60)
[2022-05-25] MEDS ORDERED: Magnesium Sulfate 2 gm BAG 2 GM/50 ML BAG IVPB ONE (08:28)
[2022-05-25] MEDS ORDERED: Acetaminophen IV 1 GM/100ML 1,000 MG/100 ML BAG IV SCH (09:30)
[2022-05-25] MEDS: Lidocaine PATCH 5% PATCH TRANSDERM SCH (09:38)
[2022-05-25] MEDS: Benzocaine (DENTAL) 10% TOP.GEL TOPICAL PRN (20:52)
[2022-05-26] MEDS: Heparin 5000 UNITS/ML 1 mL VIAL SUBCUT SCH ×4 (00:45→22:33)
[2022-05-26] MEDS: Acetaminophen IV 1 GM/100ML 1,000 MG/100 ML BAG IV SCH ×2 (04:07→08:13)
[2022-05-26] MEDS: Lidocaine PATCH 5% PATCH TRANSDERM SCH (08:17)
[2022-05-26] MEDS ORDERED: HYDROmorphone 1 MG/1 ML SYRINGE IV SLOW PU ONE (08:41)
[2022-05-26] MEDS: Benzocaine (DENTAL) 10% TOP.GEL TOPICAL PRN ×2 (14:08→20:32)
[2022-05-27 05:13] LABS: Hematocrit 27 % (42-52); Hemoglobin 9.3 g/dL (14.0-18.0); Mean Corpuscular HGB Conc 34 g/dL (31-36); Mean Corpuscular Hemoglobin 28 pg (27-31); Mean Corpuscular Volume 82 fL (80-94); Mean Platelet Volume 7.2 fL (7.4-10.4); Platelet Count 270 10^3/uL (150-450); Red Blood Count 3.32 10^6 /uL (4.18-5.48); Red Cell Distribution Width 15 % (10-15); White Blood Count 6.4 10^3/uL (3.5-10.8)
[2022-05-27 05:40] LABS: Calcium 9.4 mg/dL (8.6-10.3); Magnesium 1.8 mg/dL (1.9-2.7); Potassium 4.7 mmol/L (3.5-5.0); eGFR CKD-EPI 65.7 (>60)
[2022-05-27] MEDS: Heparin 5000 UNITS/ML 1 mL VIAL SUBCUT SCH (06:16)
[2022-05-27] MEDS: Lidocaine PATCH 5% PATCH TRANSDERM SCH (08:23)
[2022-05-27] MEDS: Benzocaine (DENTAL) 10% TOP.GEL TOPICAL PRN (10:25)
[2022-05-27] MEDS: Enoxaparin 40 MG/0.4 ML SYR SUBCUT SCH (21:20)
[2022-05-28] MEDS: Lidocaine PATCH 5% PATCH TRANSDERM SCH (08:34)
[2022-05-28] MEDS: Benzocaine (DENTAL) 10% TOP.GEL TOPICAL PRN ×2 (13:13→17:08)
[2022-05-28] MEDS: Enoxaparin 40 MG/0.4 ML SYR SUBCUT SCH (20:34)
[2022-05-29] MEDS: Lidocaine PATCH 5% PATCH TRANSDERM SCH (08:08)
[2022-05-29] MEDS: Benzocaine (DENTAL) 10% TOP.GEL TOPICAL PRN (08:17)
[2022-05-29] MEDS: Enoxaparin 40 MG/0.4 ML SYR SUBCUT SCH (21:10)
[2022-05-30 06:42] LABS: ABS Eosinophils 0.3 10^3/ul (0-0.6); ABS Lymphocytes 2.7 10^3/ul (1.0-4.8); ABS Monocytes 0.6 10^3/ul (0-0.8); ABS Neutrophils 1.9 10^3/ul (1.5-7.7); Eosinophil % 5.8 %; Hematocrit 29 % (42-52); Hemoglobin 10.1 g/dL (14.0-18.0); Lymphocyte % 48.7 %; Mean Corpuscular HGB Conc 34 g/dL (31-36); Mean Corpuscular Hemoglobin 28 pg (27-31); Mean Corpuscular Volume 82 fL (80-94); Mean Platelet Volume 7.2 fL (7.4-10.4); Nucleated Red Blood Cells % 0.1; Platelet Count 305 10^3/uL (150-450); Red Blood Count 3.59 10^6 /uL (4.18-5.48); Red Cell Distribution Width 15 % (10-15); White Blood Count 5.6 10^3/uL (3.5-10.8)
[2022-05-30 06:53] LABS: Calcium 9.7 mg/dL (8.6-10.3); Potassium 4.4 mmol/L (3.5-5.0); eGFR CKD-EPI 75.2 (>60)
[2022-05-30 07:52] VITALS: BP 109/72
[2022-05-30] MEDS: Lidocaine PATCH 5% PATCH TRANSDERM SCH (08:27)
== END 2022-05-30 10:30 | disposition home or self-care (01) | DRG 312 ==
LOC: ED 08:32 → EDHOLD 20:26 → SUATTDRO 20:26 → ICU 23:53 → SSU 05-08 15:25
PROVIDERS: ADMIT Internal Medicine Critical Care Medicine; ATTEND Hospitalist